=== PATIENT | male | born 1940 ===

== ENCOUNTER 2017-01-18 07:00 | Inpatient (IN) | payer MEDICARE, BC ==
[~2017-01-18] VITALS: Ht 180.3 cm; Wt 93.0 kg
[2017-01-18] VITALS (13 sets, daily range): BP systolic 129–163; BP diastolic 64–96
--- NOTE | 2017-01-18 06:48 | Pre-Procedure Note/Attestation ---
Pre-Procedure Note/Attestation Complete Prior to Procedure Planned Procedure: right Procedure Narrative: rt total hip arthroplasty Indications for Procedure Pre-Operative Diagnosis: rt hip arthritis Attestation I attest that I discussed the nature of the procedure; its benefits; risks and complications; and alternatives (and the risks and benefits of such alternatives ), prior to the procedure, with the patient (or the patient's legal chemical sales representative). I attest that, if there was a reasonable possibility of needing a blood transfusion, the patient (or the patient's legal chemical sales representative) was given the [facility] standardized written summary, pursuant to the Derrick Donna Blood Safety Act ([place] Health and Safety Code # 1645, as amended). I attest that I re-evaluated the patient just prior to the surgery and that there has been no change in the patient's H&P, except as documented below:NONE MICHELET TRUONG January 18, 2017 06:48
[~2017-01-18 07:00] MED LIST: HEALTHY HEART1 EACH PO; OMEPRAZOLE20 M3 ORAL; QUINAPRIL HCL40 MG PO; TRAZODONE HCL100 MG ORAL; TRIAMTERENE-HC1 EAC7 ORAL; ceFAZolin 1gm in D5W 55ml IVP ONE; celeBREX 200mg Cap **SURGERY PATIENTS ONLY ORAL ONE; oxyCONTIN 20mg tab ORAL ONE
[2017-01-18] MEDS ORDERED: LR 1000ml ONE (09:00)
[2017-01-18] MEDS ORDERED: NS Irrig 1000ml ONE (09:00)
[2017-01-18] MEDS ORDERED: Sterile Water Irrig 1000ml IRRIG ONE (09:00)
[2017-01-18] MEDS ORDERED: Lidocaine 1% MPF 10mg/ml 5ml ONE (09:00)
[2017-01-18] MEDS ORDERED: Midazolam 2mg/2ml Inj ONE (09:00)
[2017-01-18] MEDS ORDERED: Propofol 10mg/ml 20ml IV ONE (09:00)
[2017-01-18] MEDS ORDERED: Alfentanil 2ml Inj ONE (09:00)
[2017-01-18] MEDS ORDERED: Morphine Sulfate PF 10 ML ONE (09:11)
[2017-01-18] MEDS ORDERED: Bupivacaine 0.5% Inj 30 ml vial INJ ONE (09:12)
[2017-01-18] MEDS ORDERED: NS Irrig 1000ml IRRIG ONE (09:15)
[2017-01-18] MEDS: Bacitracin 50000 Units Vial ONE ×2 (09:15→11:26)
[2017-01-18] MEDS ORDERED: HYDROmorphone 1mg/ml Carpuject SUBQ PRN (09:45)
[2017-01-18] MEDS ORDERED: Norco 7.5mg/325mg tab ORAL PRN ×2 (09:45→11:00)
[2017-01-18] MEDS ORDERED: Norco 5mg/325mg tab ORAL PRN ×2 (09:45→11:00)
[2017-01-18] MEDS ORDERED: Milk of Magnesia 30ml Ud ORAL PRN (09:45)
--- NOTE | 2017-01-18 10:55 | Anethesia Preoperative Eval ---
Anesthesia Pre-op PMH/ROS General Date of Evaluation: January 18, 2017 Time of Evaluation: 09:11 Anesthesiologist: Bhavin ASA Score: ASA 3 Mallampati Score Class I : Soft palate, uvula, fauces, pillars visible Class II: Soft palate, uvula, fauces visible Class III: Soft palate, base of uvula visible Class IV: Only hard plate visible Mallampati Classification: Class II Surgeon: Shana Diagnosis: R Hip Pain Surgical Procedure: R Total Hip Arthroplasty Anesthesia History: none Family History: no anesthesia problems Allergies: Coded Allergies: No Known Allergies (Unverified , 01/13/17) Medications: see eMAR Past Medical History Cardiovascular: Reports: HTN, other - HL Pulmonary: Reports: other - Pneumonia Gastrointestinal/Genitourinary: Reports: GERD Musculoskeletal/Integumentary: Reports: OA - HIP PSxH Narrative: Cholecystectomy Anesthesia Pre-op Phys. Exam Physician Exam Last Vital Signs Date Time Temp Pulse Resp B/P Pulse Ox O2 Delivery O2 Flow Rate FiO2 01/18/17 07:33 97.3 67 18 131/77 95 Room Air Constitutional: NAD Neurologic: CN 2-12 intact Cardiovascular: RRR Respiratory: CTA Gastrointestinal: S/NT/ND Airway Exam Mallampati Score: Class II MO: full ROM: limited Teeth: intact Anesthesia Pre-op A/P Risk Assessment & Plan Assessment: ASA 3 Plan: GA, Spinal, Lumbar Plexus Block Status Change Before Surgery: No Pre-Antibiotics Dru Grams Ancef IV Given Within 1 Hr of Incision: Yes Time Given: 09:36 Hans Delcid MD January 18, 2017 10:55
[2017-01-18] MEDS ORDERED: LR 1000ml 1,000 ML IVLG SCH (10:56)
--- NOTE | 2017-01-18 10:58 | Immediate Post-Op Evaluation ---
Immediate Post-Op Evalulation Immediate Post-Op Evalulation Procedure: R Total Hip Arthroplasty Date of Evaluation: January 18, 2017 Time of Evaluation: 12:15 IV Fluids: 2000 LR Blood Products: 0 Estimated Blood Loss: 50 Urinary Output: 50 Blood Pressure Systolic: 144 Blood Pressure Diastolic: 80 Pulse Rate: 99 Respiratory Rate: 16 O2 Sat by Pulse Oximetry: 99 Temperature (Fahrenheit): 97.5 Pain Score (1-10): 0 Nausea: No Vomiting: No Complications 0 Patient Status: awake, reacts, patent, extubated, none Hydration Status: other Dru Grams Ancef IV Given Within 1 Hr of Incision: Yes Time Given: 09:36 Hans Delcid MD January 18, 2017 10:58
[2017-01-18] MEDS ORDERED: Metoclopramide 10mg/2ml Inj IVP PRN (11:00)
[2017-01-18] MEDS ORDERED: fentaNYL 100 mcg/2 mL IV PRN (11:00)
[2017-01-18] MEDS ORDERED: Atropine Inj 1mg/10ml Syr IV PRN (11:00)
[2017-01-18] MEDS ORDERED: LORazepam Inj 2mg/ml 1ml IV PRN (11:00)
[2017-01-18] MEDS ORDERED: Ketorolac 60mg Inj IV PRN (11:00)
[2017-01-18] MEDS ORDERED: Oxycodone/Acetaminophen 5-325 ORAL PRN (11:00)
[2017-01-18] MEDS ORDERED: DiphenhydrAMINE 50mg/ml Inj IVP PRN (11:00)
[2017-01-18] MEDS ORDERED: Meperidine 25mg/0.5ml Inj IV PRN (11:00)
[2017-01-18] MEDS ORDERED: Hydromorphone 0.5mg/0.5ml inj IVP PRN (11:00)
[2017-01-18] MEDS ORDERED: Midazolam 2mg/2ml Inj IVP PRN (11:00)
[2017-01-18] MEDS ORDERED: Ketorolac 30mg Inj IV PRN (11:00)
--- NOTE | 2017-01-18 12:02 | Brief Operative Note ---
Immediate Post Operative Note Operative Note Chief Complaint: rt hip pain Pre-op Diagnosis: rt hip arthritis Procedure: rt ana maría Post-op Diagnosis: same as pre-op Findings: consistent w/pre-op dx studies Surgeon: md merissa Senior Statistician: lizbeth massey Anesthesiologist: md isabela Anesthesia: general Specimen: yes Complications: none Condition: stable Estimated Blood Loss: minimal Drains: none Implant(s) used?: Yes - quesada and nephew TROY MASSEY January 18, 2017 12:02
--- NOTE | 2017-01-18 12:46 | Diagnostic Imaging Report ---
Indication: pain Findings: Single AP view of the pelvis was performed. Intraoperative, partial image of the lower pelvis showing right hip replacement in progress. There is a Barker catheter. There is a left total hip prosthesis noted. Impression: Intraoperative imaging
[2017-01-18] MEDS: Docusate 100mg tablet ORAL SCH ×2 (13:00→18:00)
--- NOTE | 2017-01-18 15:01 | Diagnostic Imaging Report ---
Indication: pain Findings: Single AP view of the pelvis was performed. Partial imaging shows right total hip arthroplasty. On this single view no alignment issues identified. There is no fracture or other complications identified. Barker catheter noted. Impression: Status post right total hip replacement
[2017-01-18] MEDS: D5 1/2NS w/KCl 20mEq 1,000 ML IV SCH (17:06)
[2017-01-18] MEDS: ceFAZolin sod 2 GM in D5W 110 ML IV SCH (17:06)
--- NOTE | 2017-01-18 19:36 | History & Physical ---
History and Physical History & Physicial I was asked ot see patint intmedicien consult by Dr craven he is a 76 year old male wht arthriti ship s/p THr PMH: hypertenison arthritis HGSIL of the anus GERD ED Fanily history father had anxiety mother rectal cancer brother colon cancer PSH: left hip arthroplasty lap homero tonsilectomy medicaiotn trazadone 100 accupril 40 omeprazole 20 triamtrene hctz vss nad nojvd cta soft no edema s/p thr perioperative blood loss hyeprtneion gerd PT OT PERIOPERATIVE ANTIBIOTIC PROPHAYLXIS BP WITH MEDS WITHHOLD PARAMETERS DVT PROPHYALXIS REGINE NICHOLE January 18, 2017 19:36
[2017-01-18] MEDS: oxyCONTIN 20mg tab ORAL SCH (20:18)
[2017-01-18] MEDS: Docusate 100mg cap ORAL SCH (20:19)
--- NOTE | 2017-01-18 22:18 | Operative Note - Dictated ---
DATE OF OPERATION: 01/18/2017 PREOPERATIVE DIAGNOSIS: Right hip end-stage arthritis. POSTOPERATIVE DIAGNOSIS: Right hip end-stage arthritis. PROCEDURE: Right total hip arthroplasty using Diaz and Nephew system, size 9 anthology stem, size 54 mm acetabular component with two dome holes or three, fully coated and hemispheric, and high offset neck with 0 length head and 36 mm diameter head. SURGEON: Denilson Saldana M.D. SERVICE AND REPAIR SUPERVISOR: Dariana Del Toro PA-C. ANESTHESIOLOGIST: Hans Delcid M.D. ANESTHESIA: Spinal anesthesia combined with plexus block. EBL: Less than 150 mL. COMPLICATIONS: None. BRIEF HISTORY: The patient is a pleasant 76-year-old gentleman, who has had ongoing right hip pain. He has underwent left total hip arthroplasty nine years ago and did very well. He failed nonoperative treatment. After full discussion of the risks and benefits of the surgery and complications associated with it including infection, bleeding, neurovascular complication, possibility of leg length discrepancy, DVT, PEs, dislocations, and other complication may arise, he opted for surgical treatment as described above. OPERATIVE PROCEDURE: The patient was brought to the operating table and was placed supine. All pressure points were well padded. Anesthesia was induced and the patient was placed in a left lateral decubitus position with the pegboard. All pressure points were well padded and axial roll was placed in. The right hip was prepped and draped in usual sterile fashion. Standard posterior lateral approach to the hip was undertaken and tensor fascia and gluteal fascia were opened. The retractors were placed in. Short external rotators were released and capsule was teed and hip was dislocated. At this point, a femoral head cut was performed approximately 1 cm proximal to the lesser trochanter. At this point, the anterior acetabular retractors were placed in and other retractors were placed around and the labrum was resected. There was a large medial osteophyte and acetabulum. Sequential acetabular reaming was performed from [address] up to 54 mm re-creating anteversion and inclination. This provided excellent stability of the 54 mm trial. There was bleeding cancellous bone all around. Once this was completed, trialing was performed and 54 mm appeared to be perfect. At this point, the hip was thoroughly irrigated using Simpulse irrigation and a 54 mm hemispheric arthritic cup was placed in about 40 degrees anteversion and 45 degrees inclination. This was malleted in. There was excellent initial fixation and subsequently two dome screws were placed in, one 25 mm and one 20 mm for additional stability. This provided excellent stability. At this point, a 20-degree Lip ultra cross-linked polyethylene was then placed in without a complication. This was locked in. Once this was completed, care was given to the femur. All other retractors were removed from around the acetabulum. A Britton retractor was used. Using a lateralizing Box Osteotome, the entry point to the femur was lateralized. Sequential broaching was then performed all the way up to size 9 broach. This provided excellent axial and rotational stability. A high offset neck and a 0 mm length x 36 mm diameter head was then chosen and this was trialed. This hip was reduced. There was excellent stability at 0, 45 degrees, and 90 degrees with internal rotation up to 75 to 80 degrees without any dislocation of the hip. Anterior stability was checked and it was perfect. Leg-lengths were checked and appeared to be perfect. Intraoperative x-rays were obtained and there was excellent canal fill. It should be noted that trialing was performed, x-rays were obtained with initially 6 mm and then 8 mm and then subsequently 9 mm broach. The 9 mm appeared to be the right size. At this point, the leg lengths were checked and appeared to be equal. At this point, the hip was dislocated and the broach was removed. The femur was thoroughly irrigated. A size 9 Anthology stem was then placed in with excellent axial and rotational stability. Trialing was performed and again 0 neck appeared to be the right size. High offset stem was used. At this point, a 36 mm diameter x 0 mm neck head was then applied onto the stem after Harrell taper was completely dried and was locked in without any complication. This was checked and rechecked and there was excellent stability. At this point, the entire construct was then reduced and stability, length, rotation, and range of motion was checked and appeared to be perfect. At this point, all wounds were thoroughly irrigated using copious amount of fluid. The gluteal fascia and tensor fascia was closed using #1 Vicryl suture. Subcutaneous tissue was closed using 2-0 Vicryl suture. The skin was closed using 3-0 Monocryl suture. Sterile dressing was applied and the patient was taken to recovery room in stable condition. Denilson Saldana M.D. DR: ALVARO JOB#: [id number] CC:
[2017-01-19] MEDS: ceFAZolin sod 2 GM in D5W 110 ML IV SCH (01:36)
[2017-01-19 04:00] VITALS: BP 132/72
[2017-01-19] MEDS: D5 1/2NS w/KCl 20mEq 1,000 ML IV SCH ×2 (04:47→08:06)
[2017-01-19 06:12] LABS: MEAN CORPUSCULAR HEMOGLOBIN 33.9 PG (27.0-31.0); MEAN CORPUSCULAR HGB CONC 36.1 G/DL (32.0-36.0); MEAN CORPUSCULAR VOLUME 94 FL (80-99); MEAN PLATELET VOLUME 7.9 FL (6.5-10.1); PLATELET COUNT 168 K/UL (150-450); RED CELL DISTRIBUTION WIDTH 10.8 % (11.6-14.8); WHITE BLOOD COUNT 19.4 K/UL (4.8-10.8)
[2017-01-19 06:40] LABS: ANION GAP 12 (5-15); CALCIUM 8.7 mg/dL (8.6-10.2); CARBON DIOXIDE 25 mEQ/L (20-30); CHLORIDE 96 mEQ/L (98-107); CREATININE 1.2 mg/dL (0.7-1.2); HEMOLYSIS 9; POTASSIUM 4.5 mEQ/L (3.4-4.9); SODIUM 133 mEQ/L (135-145)
[2017-01-19 07:58] VITALS: BP 133/73
[2017-01-19] MEDS: Triamterene/Hctz 37.5/25 cap ORAL SCH (08:03)
[2017-01-19] MEDS: Docusate 100mg cap ORAL SCH ×3 (08:04→17:20)
[2017-01-19] MEDS: celeBREX 200mg Cap **SURGERY PATIENTS ONLY ORAL SCH (08:04)
[2017-01-19] MEDS: Lisinopril 20mg tab ORAL SCH (08:05)
[2017-01-19] MEDS: oxyCONTIN 20mg tab ORAL SCH ×2 (08:05→21:18)
[2017-01-19] MEDS: Enoxaparin 40mg Inj SUBQ SCH (08:08)
--- NOTE | 2017-01-19 08:24 | Orthopedic Progress Note ---
Orthopedic - Progress Note Subjective Symptoms: improved - no complaints Objective Vital Signs Laboratory Tests Test 01/19/17 05:30 White Blood Count 19.4 K/UL (4.8-10.8) H Red Blood Count 4.00 M/UL (4.70-6.10) L Hemoglobin 13.6 G/DL (14.2-18.0) L Hematocrit 37.6 % (42.0-52.0) L Mean Corpuscular Volume 94 FL (80-99) Mean Corpuscular Hemoglobin 33.9 PG (27.0-31.0) H Mean Corpuscular Hemoglobin Concent 36.1 G/DL (32.0-36.0) H Red Cell Distribution Width 10.8 % (11.6-14.8) L Platelet Count 168 K/UL (150-450) Mean Platelet Volume 7.9 FL (6.5-10.1) Neutrophils (%) (Auto) % (45.0-75.0) Lymphocytes (%) (Auto) % (20.0-45.0) Monocytes (%) (Auto) % (1.0-10.0) Eosinophils (%) (Auto) % (0.0-3.0) Basophils (%) (Auto) % (0.0-2.0) Neutrophils % (Manual) Pending Lymphocytes % (Manual) Pending Platelet Estimate Pending Platelet Morphology Pending Sodium Level 133 mEQ/L (135-145) L Potassium Level 4.5 mEQ/L (3.4-4.9) Chloride Level 96 mEQ/L (98-107) L Carbon Dioxide Level 25 mEQ/L (20-30) Anion Gap 12 (5-15) Blood Urea Nitrogen 22 mg/dL (7-23) Creatinine 1.2 mg/dL (0.7-1.2) Estimat Glomerular Filtration Rate mL/min (>60) Glucose Level 154 mg/dL (74-106) H Calcium Level 8.7 mg/dL (8.6-10.2) Last 24 Hour Vital Signs Date Time Temp Pulse Resp B/P Pulse Ox O2 Delivery O2 Flow Rate FiO2 01/19/17 08:05 133/73 01/19/17 07:58 97.2 76 20 133/73 95 Nasal Cannula 01/19/17 04:00 97.7 66 18 132/72 95 Nasal Cannula 2.0 01/18/17 20:00 97.4 80 17 141/82 96 Nasal Cannula 2.0 01/18/17 15:14 97.1 83 18 155/96 100 Nasal Cannula 2.0 01/18/17 14:14 96.4 81 18 146/93 98 Room Air 01/18/17 13:30 97.0 72 16 145/72 98 Nasal Cannula 3.0 01/18/17 13:15 72 16 129/67 98 Nasal Cannula 3.0 01/18/17 13:00 65 16 136/64 98 Nasal Cannula 3.0 01/18/17 12:45 77 16 163/79 100 Nasal Cannula 3.0 01/18/17 12:30 81 16 155/82 100 Simple Mask 6.0 01/18/17 12:20 70 19 157/78 100 Simple Mask 6.0 01/18/17 12:15 68 15 149/75 100 Simple Mask 6.0 01/18/17 12:10 75 14 143/69 100 Simple Mask 6.0 01/18/17 12:04 97.5 82 16 144/80 99 Simple Mask 6.0 01/18/17 12:03 99 16 99 I&O Intake and Output 01/18/17 01/19/17 19:00 07:00 Intake Total 800 ml 400 ml Output Total 250 ml 800 ml Balance 550 ml -400 ml Intake Oral 540 ml 400 ml IV Total 260 ml Output Urine Total 250 ml 800 ml # Voids 1 Wound: clean, dry, intact Drains: none Neuro Status: normal Vascular Status: normal Additional Comments Xray reviewed: Excellent Assessment Post-op Diagnosis POD 1 Procedure Performed rt ana maría Plan Plan: PT, discharge plan - likely home tuesday with services and DME TROY RAMIRES January 19, 2017 08:24
[2017-01-19 08:27] LABS: BAND NEUTROPHILS % (MANUAL) 0 % (0-8); BASOPHILS % (MANUAL) 0 % (0-2); EOSINOPHILS % (MANUAL) 0 % (0-3); LYMPHOCYTES % (MANUAL) 9 % (20-45); NEUTROPHILS % (MANUAL) 85 % (45-75); PLATELET ESTIMATE ADEQUATE; PLATELET MORPHOLOGY NORMAL; TOTAL CELLS COUNTED 100
[2017-01-19] MEDS ORDERED: Lisinopril 20mg tab ORAL SCH (09:00)
[2017-01-19] MEDS ORDERED: Triamterene/Hctz 37.5/25 cap ORAL SCH (09:00)
--- NOTE | 2017-01-19 09:08 | 48 Hour Post Anesthesia Eval ---
Post Anesthesia Evaluation Procedure: R Total Hip Arthroplasty Date of Evaluation: January 19, 2017 Time of Evaluation: 07:10 Blood Pressure Systolic: 132 0: 72 Pulse Rate: 66 Respiratory Rate: 18 Temperature (Fahrenheit): 97.7 O2 Sat by Pulse Oximetry: 95 Airway: patent Nausea: No Vomiting: No Pain Intensity: 2 Hydration Status: adequate Cardiopulmonary Status: at baseline Mental Status/LOC: patient returned to baseline Post-Anesthesia Complications: 0 Follow-up care needed: N/A - further care as per primary team SANTY MOORE M.D. January 19, 2017 09:08
[2017-01-19 12:09] VITALS: BP 124/70
[2017-01-19 16:10] VITALS: BP 107/66
--- NOTE | 2017-01-19 18:23 | General Progress Note ---
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 piost op anemia Assessment/Plan pt ot follow cbc monitor wbc perioperative antibiotic porphyklaxis given doing ok needs homhe health when dced Subjective Date patient seen: January 19, 2017 Constitutional: Reports: no symptoms Cardiovascular: Reports: no symptoms Respiratory: Reports: no symptoms Gastrointestinal/Abdominal: Reports: no symptoms Genitourinary: Reports: no symptoms Allergies: Coded Allergies: No Known Allergies (Unverified , 01/13/17) Objective Last 24 Hour Vital Signs Date Time Temp Pulse Resp B/P Pulse Ox O2 Delivery O2 Flow Rate FiO2 01/19/17 16:10 97.5 62 21 107/66 95 Nasal Cannula 01/19/17 12:09 97.5 63 21 124/70 95 Nasal Cannula 01/19/17 09:08 66 18 95 01/19/17 08:05 133/73 01/19/17 07:58 97.2 76 20 133/73 95 Nasal Cannula 01/19/17 04:00 97.7 66 18 132/72 95 Nasal Cannula 2.0 01/18/17 20:00 97.4 80 17 141/82 96 Nasal Cannula 2.0 Intake and Output 01/18/17 01/19/17 19:00 07:00 Intake Total 800 ml 475 ml Output Total 250 ml 800 ml Balance 550 ml -325 ml Intake Oral 540 ml 400 ml IV Total 260 ml 75 ml Output Urine Total 250 ml 800 ml # Voids 1 Laboratory Tests 01/19/17 05:30: White Blood Count 19.4H, Red Blood Count 4.00L, Hemoglobin 13.6L, Hematocrit 37.6L, Mean Corpuscular Volume 94, Mean Corpuscular Hemoglobin 33.9H, Mean Corpuscular Hemoglobin Concent 36.1H, Red Cell Distribution Width 10.8L, Platelet Count 168, Mean Platelet Volume 7.9, Neutrophils (%) (Auto) , Lymphocytes (%) (Auto) , Monocytes (%) (Auto) , Eosinophils (%) (Auto) , Basophils (%) (Auto) , Differential Total Cells Counted 100, Neutrophils % ( Manual) 85H, Lymphocytes % (Manual) 9L, Monocytes % (Manual) 6, Eosinophils % ( Manual) 0, Basophils % (Manual) 0, Band Neutrophils 0, Platelet Estimate Adequate, Platelet Morphology Normal, Red Blood Cell Morphology Normal, Sodium Level 133L, Potassium Level 4.5, Chloride Level 96L, Carbon Dioxide Level 25, Anion Gap 12, Blood Urea Nitrogen 22, Creatinine 1.2, Estimat Glomerular Filtration Rate , Glucose Level 154H, Calcium Level 8.7 Height (Feet): 5 Height (Inches): 11.00 Weight (Pounds): 205 General Appearance: WD/WN EENT: PERRL/EOMI Neck: non-tender Cardiovascular: normal rate, regular rhythm, no JVD Respiratory/Chest: lungs clear Abdomen: soft REGINE NICHOLE January 19, 2017 18:23
[2017-01-19 20:00] VITALS: BP 131/74
[2017-01-19] MEDS: TraZODone 100mg tab ORAL PRN (21:18)
[2017-01-20] VITALS: BP 125/63
[2017-01-20 04:45] VITALS: BP 133/66
[2017-01-20 07:45] VITALS: BP 115/61
--- NOTE | 2017-01-20 08:00 | Orthopedic Progress Note ---
Orthopedic - Progress Note Subjective Symptoms: c/o post-op hip pain Additional Comments Doing well with PT Objective Vital Signs Last 24 Hour Vital Signs Date Time Temp Pulse Resp B/P Pulse Ox O2 Delivery O2 Flow Rate FiO2 01/20/17 07:45 98.2 65 19 115/61 93 Room Air 01/20/17 04:45 98.1 65 16 133/66 95 Room Air 01/20/17 00:00 97.5 64 16 125/63 95 Room Air 01/19/17 20:00 97.5 66 16 131/74 95 Room Air 01/19/17 16:10 97.5 62 21 107/66 95 Nasal Cannula 01/19/17 12:09 97.5 63 21 124/70 95 Nasal Cannula 01/19/17 09:08 66 18 95 01/19/17 08:05 133/73 I&O Intake and Output 01/19/17 01/20/17 19:00 07:00 Intake Total 675 ml 1150 ml Output Total 1750 ml 2000 ml Balance -1075 ml -850 ml Intake Oral 1150 ml IV Total 675 ml Output Urine Total 1750 ml 2000 ml # Voids 1 1 # Bowel Movements 1 Wound: clean, dry, intact Drains: none Neuro Status: normal Vascular Status: normal Assessment Post-op Diagnosis Doing well s/p BENOIT Plan Plan: PT, pain management, discharge plan, discharge to home Additional Comments Discharge home in am. Follow up with me in 2-3 weeks MICHELET TRUONG January 20, 2017 08:00
[2017-01-20 08:12] LABS: BASOPHILS % (AUTO) 0.8 % (0.0-2.0); EOSINOPHILS % (AUTO) 0.7 % (0.0-3.0); MEAN CORPUSCULAR HEMOGLOBIN 36.8 PG (27.0-31.0); MEAN CORPUSCULAR HGB CONC 38.2 G/DL (32.0-36.0); MEAN CORPUSCULAR VOLUME 96 FL (80-99); MONOCYTES % (AUTO) 9.2 % (1.0-10.0); NEUTROPHILS % (AUTO) 71.4 % (45.0-75.0); PLATELET COUNT 122 K/UL (150-450); RED BLOOD COUNT 3.38 M/UL (4.70-6.10); WHITE BLOOD COUNT 12.3 K/UL (4.8-10.8)
[2017-01-20] MEDS: Lisinopril 20mg tab ORAL SCH (09:00)
[2017-01-20] MEDS: oxyCONTIN 20mg tab ORAL SCH ×2 (09:12→20:17)
[2017-01-20] MEDS: Triamterene/Hctz 37.5/25 cap ORAL SCH (09:12)
[2017-01-20] MEDS: celeBREX 200mg Cap **SURGERY PATIENTS ONLY ORAL SCH (09:13)
[2017-01-20] MEDS: Docusate 100mg cap ORAL SCH ×3 (09:13→17:03)
[2017-01-20] MEDS: Enoxaparin 40mg Inj SUBQ SCH (09:34)
[2017-01-20 12:00] VITALS: BP 104/56
[2017-01-20] MEDS ORDERED: Tubing IV Secondary IV ONE (15:10)
[2017-01-20 16:50] VITALS: BP 126/68
[2017-01-20 20:00] VITALS: BP 128/69
[2017-01-20] MEDS: TraZODone 100mg tab ORAL PRN (20:16)
--- NOTE | 2017-01-20 20:48 | History and Physical Report ---
DATE OF ADMISSION: 01/18/2017 HISTORY OF PRESENT ILLNESS: The patient is a 76-year-old male, who was admitted to undergo total hip arthroplasty, has done well. Denies chest pain or shortness of breath. He had urinary retention last night. He was given Flomax. He is doing well. PHYSICAL EXAMINATION: VITAL SIGNS: In's and out's were reviewed. Blood pressure is 104/56, saturation 95%, respirations 21, pulse 66, temperature is 97.9 degrees. HEENT: Normocephalic and atraumatic. Anicteric sclerae. NECK: No JVD or carotid bruit. HEART: S1 and S2. LUNGS: Clear. ABDOMEN: Soft, nontender, and nondistended. EXTREMITIES: No clubbing or cyanosis. IMPRESSION: 1. Status post total hip arthroplasty. PT/OT. Deep venous thrombosis prophylaxis. 2. Urinary retention. Flomax was started. He was recommended to continue for four weeks and follow up with Urology as an outpatient. Chase Albrecht M.D. DR: SARA JOB#: [id number] CC: MATT
[2017-01-20] MEDS ORDERED: Tamsulosin 0.4mg cap ORAL SCH (21:00)
[2017-01-21 04:00] VITALS: BP 117/68
[2017-01-21 07:36] LABS: EOSINOPHILS % (AUTO) 1.5 % (0.0-3.0); LYMPHOCYTES % (AUTO) 20.6 % (20.0-45.0); MEAN CORPUSCULAR VOLUME 94 FL (80-99); MEAN PLATELET VOLUME 8.7 FL (6.5-10.1); MONOCYTES % (AUTO) 10.5 % (1.0-10.0); NEUTROPHILS % (AUTO) 66.5 % (45.0-75.0); PLATELET COUNT 158 K/UL (150-450); RED BLOOD COUNT 3.77 M/UL (4.70-6.10); RED CELL DISTRIBUTION WIDTH 10.7 % (11.6-14.8); WHITE BLOOD COUNT 9.8 K/UL (4.8-10.8)
[2017-01-21 08:00] VITALS: BP 125/71
[2017-01-21] MEDS: oxyCONTIN 20mg tab ORAL SCH (08:09)
[2017-01-21] MEDS: celeBREX 200mg Cap **SURGERY PATIENTS ONLY ORAL SCH (08:09)
[2017-01-21] MEDS: Lisinopril 20mg tab ORAL SCH (08:10)
[2017-01-21] MEDS: Docusate 100mg cap ORAL SCH ×2 (08:10→12:38)
[2017-01-21] MEDS: Triamterene/Hctz 37.5/25 cap ORAL SCH (08:10)
[2017-01-21] MEDS: Enoxaparin 40mg Inj SUBQ SCH (08:15)
--- NOTE | 2017-01-21 08:22 | Orthopedic Progress Note ---
Orthopedic - Progress Note Subjective Symptoms: improved Objective Vital Signs Laboratory Tests Test 01/21/17 06:15 White Blood Count 9.8 K/UL (4.8-10.8) Red Blood Count 3.77 M/UL (4.70-6.10) L Hemoglobin 12.8 G/DL (14.2-18.0) L Hematocrit 35.6 % (42.0-52.0) L Mean Corpuscular Volume 94 FL (80-99) Mean Corpuscular Hemoglobin 34.0 PG (27.0-31.0) H Mean Corpuscular Hemoglobin Concent 36.0 G/DL (32.0-36.0) Red Cell Distribution Width 10.7 % (11.6-14.8) L Platelet Count 158 K/UL (150-450) Mean Platelet Volume 8.7 FL (6.5-10.1) Neutrophils (%) (Auto) 66.5 % (45.0-75.0) Lymphocytes (%) (Auto) 20.6 % (20.0-45.0) Monocytes (%) (Auto) 10.5 % (1.0-10.0) H Eosinophils (%) (Auto) 1.5 % (0.0-3.0) Basophils (%) (Auto) 1.0 % (0.0-2.0) Last 24 Hour Vital Signs Date Time Temp Pulse Resp B/P Pulse Ox O2 Delivery O2 Flow Rate FiO2 01/21/17 08:10 125/75 01/21/17 04:00 97.9 69 18 117/68 94 Room Air 01/20/17 20:00 98.1 71 18 128/69 95 Room Air 01/20/17 16:50 98.4 71 21 126/68 94 Room Air 01/20/17 12:00 97.9 66 21 104/56 95 Nasal Cannula 01/20/17 09:00 115/61 I&O Intake and Output 01/20/17 01/21/17 19:00 07:00 Output Total 900 ml Balance -900 ml Output Urine Total 900 ml # Voids 1 Wound: clean, dry, intact Drains: none Neuro Status: normal Vascular Status: normal Assessment Post-op Diagnosis POD 3 Procedure Performed rt ana maría Plan Plan: discharge to home - has f/u apt 01/29 MUCCIGRTROY KIM January 21, 2017 08:22
[2017-01-21 12:00] VITALS: BP 119/70
--- NOTE | 2017-01-22 03:58 | Discharge Summary 2 SIG ---
DATE OF ADMISSION: 01/18/2017 DATE OF DISCHARGE: 01/21/2017 HISTORY: The patient is a pleasant 76-year-old gentleman, who was admitted on 01/18/2017 following a right total hip arthroplasty. He has had a benign hospital course and he has been followed by Dr. Chase Albrecht for Internal Medicine. The patient was stable for discharge home on 01/21/2017. DISCHARGE INSTRUCTIONS: The patient may be weightbearing as tolerated. He is to continue the abduction pillow while in bed. He is to continue Lovenox for full 14 days postop and will follow up with us in our office in 2 weeks' time. The patient is being discharged with oral medications, DME and home services. Denilson Saldana M.D. Lizz Bowen DR: AYSHA JOB#: [id number] CC: MATT
== END 2017-01-21 12:30 | disposition home health service (06) | DRG 470 ==
LOC: SDSOVERFLO 07:00 → 3E 13:44
PROC: 0SR902A Replacement of Right Hip Joint with Metal on Polyethylene Synthetic Substitute, Uncemented, Open Approach (ICD-10-PCS; principal; 2017-01-18 09:30)
DX: M16.11 Unilateral primary osteoarthritis, right hip (principal); Z96.642 Presence of left artificial hip joint; I10 Essential (primary) hypertension; K21.9 Gastro-esophageal reflux disease without esophagitis; R85.613 High grade squamous intraepithelial lesion on cytologic smear of anus (HGSIL); R33.9 Retention of urine, unspecified
CPT/HCPCS: 36415; 72170; 80048; 85007; 85025; 86850; 86900; 86901; 86920; 87081; 94003; 94150; J2250; J3490